=== PATIENT | male | born 1965 | race Caucasian/White ===

== ENCOUNTER → 2023-03-25 | Outpatient (CLI) | payer SELFPAY ==
[~2023-03-25] MED LIST: CYCL10 PO; HYDACE5 PO; IBUP800 PO; NAPR500 PO; OXYACE5T PO; TRAM50 PO
[2023-03-28 00:08] LABS: HBSAG SCREEN Negative (Negative); HCV AB Non Reactive (Non Reactive); HEP A AB, IGM Negative (Negative); HEP B CORE AB, IGM Negative (Negative); HIV AB/P24 AG SCREEN Non Reactive (Non Reactive)
== END ==
LOC: LAB SHORT 16:50 → LAB 16:50
PROVIDERS: Physician Assistant
DX: Z11.3 Encounter for screening for infections with a predominantly sexual mode of transmission (principal)
CPT/HCPCS: 80074; 86592; 86695; 86696; 87389